=== PATIENT | male | born 1960 | race Caucasian/White ===

== ENCOUNTER 2024-05-11 17:16 | Emergency (ER) | payer BC, OTHER ==
[2024-05-11 18:12] VITALS: BP 136/71; PULSE 65; RESP 18; TEMP 97.8; BMI 24.9
[2024-05-11] MEDS: ACETAMINOPHEN 500 MG TABLET (FP) PO ONE (19:43)
== END 2024-05-12 00:19 | disposition home or self-care (01) ==
LOC: JER 17:16
DX: S76.112A Strain of left quadriceps muscle, fascia and tendon, initial encounter (principal); M25.562 Pain in left knee; W01.0XXA Fall on same level from slipping, tripping and stumbling without subsequent striking against object, initial encounter
CPT/HCPCS: 73552-TC-LT-FY; 73560-TC-LT-FY; 73718-TC-LT; 99284-25